=== PATIENT | female | born 1985 | race Two or more races ===

== ENCOUNTER 2023-03-04 04:44 | Emergency (ER) | payer MEDICAID ==
[~2023-03-04] VITALS: Ht 160 cm; Wt 52.3 kg
[2023-03-04] MEDS ORDERED: ACETAMINOPHEN 325 MG TAB PO ONE (05:15)
[2023-03-04 05:44] LABS: Rapid Influenza A Negative (Negative); Rapid Influenza B Positive (Negative)
[2023-03-04 05:45] LABS: COVID19 ANTIGEN SOFIA FIA NEGATIVE (NEGATIVE)
[2023-03-04 07:43] VITALS: BP 129/89; PULSE 100; RESP 17; O2SAT 97
[2023-03-04 07:45] VITALS: TEMP 98.3
[2023-03-04] MEDS ORDERED: PROM1SOL4 PO (08:03)
[2023-03-04] MEDS ORDERED: ACET500T58 PO (08:03)
[2023-03-04] MEDS ORDERED: IBUP1TAB5 PO (08:03)
[2023-03-04] MEDS ORDERED: BENZ100C97 PO (08:03)
== END 2023-03-04 08:06 | disposition home or self-care (01) ==
LOC: ER 04:44
DX: J10.1 Influenza due to other identified influenza virus with other respiratory manifestations (principal); Z20.822 Contact with and (suspected) exposure to COVID-19
CPT/HCPCS: 36415; 87426; 87804